=== PATIENT | female | born 1990 | race Caucasian/White ===

== ENCOUNTER 2017-04-21 10:31 | Emergency (ER) | payer SELFPAY ==
[2017-04-21 11:03] VITALS: BP 107/69
== END 2017-04-21 13:32 | disposition left against medical advice (07) ==
LOC: ED 10:31
DX: R05 Cough (principal); Z53.21 Procedure and treatment not carried out due to patient leaving prior to being seen by health care provider
CPT/HCPCS: 99282

== ENCOUNTER 2017-04-22 10:58 | Emergency (ER) | payer SELFPAY ==
[2017-04-22] MEDS ORDERED: Albuterol/Ipratropium NEB.SOL* Albuterol 2.5 MG/Ipratropium 0.5 MG 3 ML INH ONE (11:20)
[2017-04-22] MEDS ORDERED: predniSONE TAB* 20 MG PO ONE (11:20)
--- NOTE | 2017-04-22 11:31 | ED ---
Shortness of Breath - HPI Summary HPI Summary: 27F w/ PMH of asthma presents with sinus congestion, sore throat, and cough for 3 days. She has been taking motrin for pain. She has been using her inhaler more frequently. She says she has been having fevers. She admits to a decrease in appetite. She denies any abdominal pain, n/v/d. She admits to SOB and chest pain when coughs. She denies any ear pain. She denies any sick contacts. - History of Current Complaint Chief Complaint: EDGeneral Time Seen by Provider: 04/22/17 11:09 - Allergy/Home Medications Allergies/Adverse Reactions: Allergies Allergy/AdvReac Type Severity Reaction Status Date / Time No Known Allergies Allergy Verified 09/14/16 21:42 PMH/Surg Hx/FS Hx/Imm Hx Endocrine/Hematology History: Denies: Hx Anticoagulant Therapy Respiratory History: Reports: Hx Asthma Infectious Disease History: No Infectious Disease History: Denies: Traveled Outside the [place] in Last 30 Days - Family History Known Family History: Positive: Diabetes, Respiratory Disease - Social History Alcohol Use: None Substance Use Type: Reports: None Smoking Status (MU): Light Every Day Tobacco Smoker Review of Systems Negative: Fever Positive: Chest Pain Positive: Shortness Of Breath All Other Systems Reviewed And Are Negative: Yes Physical Exam Triage Information Reviewed: Yes Vital Signs On Initial Exam: Initial Vitals Temp Pulse Resp BP Pulse Ox 97.8 F 97 17 109/71 100 04/22/17 11:01 04/22/17 11:01 04/22/17 11:01 04/22/17 11:01 04/22/17 11:01 Vital Signs Reviewed: Yes Appearance: Positive: Well-Appearing Skin: Positive: Warm, Dry Head/Face: Positive: Normal Head/Face Inspection Eyes: Positive: Normal, EOMI, LELE, Conjunctiva Clear ENT: Positive: Pharynx normal, Nasal congestion, Nasal drainage, TMs normal Respiratory/Lung Sounds: Positive: Breath Sounds Present, Wheezes, Other - upper resp sounds heard Cardiovascular: Positive: Normal, RRR Abdomen Description: Positive: Nontender, Soft Bowel Sounds: Positive: Present Diagnostics - Vital Signs Vital Signs Temp Pulse Resp BP Pulse Ox 04/22/17 11:18 89 99 04/22/17 11:17 100/70 04/22/17 11:11 98.5 F 92 22 100/70 96 04/22/17 11:01 97.8 F 97 17 109/71 100 - Laboratory Lab Statement: Any lab studies that have been ordered have been reviewed, and results considered in the medical decision making process. - Radiology chest Xray Interpretation: No Acute Changes Radiology Interpretation Completed By: Radiologist Course/Dx - Course Course Of Treatment: 27F w/ PMH of asthma presents with sinus congestion, sore throat, and cough for 3 days.She has been using her inhaler more frequently. She says she has been having fevers. She admits to SOB and chest pain when coughs. on exam lungs sound wheeze and upper resp sounds, gave duoneb and prednisone and pt feels and sounds better. chest xray normal. will treat supporatively. patient understands and agrees with plan - Diagnoses Differential Diagnosis/HQI/PQRI: Positive: Asthma, Bronchitis, Pneumonia Provider Diagnoses: Upper respiratory infection, Asthma exacerbation Discharge - Discharge Plan Condition: Good Disposition: HOME Prescriptions: Fluticasone NASAL * [Flonase *] 2 spray BOTH NARES DAILY #1 bottle guaiFENesin/CODIEN 100MG-10MG* [Robitussin AC 100Mg-10Mg*] 5 ml PO Q6H PRN #100 ml MDD 20ml PRN Reason: Cough predniSONE TAB* [Deltasone TAB*] 40 mg PO DAILY #8 tab Patient Education Materials: Upper Respiratory Infection (ED) Referrals: [facility] [Outside] Additional Instructions: Take cough medication 5ml (1 teaspoon) every 6 hours as needed cough Use intranasal steroid one spray each nostril twice a day Use inhaler up to two puffs every 4-6 hours for cough Take steroid once a day starting tomorrow Use saline in the nose for nasal congestion, can also get Sudafed at pharmacy counter for nasal congestion Use humidifier or place warm bowls of water around the room for cough Take Tylenol or ibuprofen for pain every 6 hours Return to ED if develop any new or worsening symptoms
[2017-04-22 11:51] LABS: UR Preg Internal Control QC Line Present
--- NOTE | 2017-04-22 13:31 | RAD ---
INDICATION: Cough and fever. COMPARISON: There are no prior studies available for comparison. TECHNIQUE: Dual-energy PA and lateral views of the chest were obtained. FINDINGS: The heart is within normal limits in size. Mediastinal and hilar contours appear within normal limits. The lungs are clear. No pleural effusion is present. IMPRESSION: NO EVIDENCE FOR ACTIVE CARDIOPULMONARY DISEASE.
[2017-04-22 13:43] VITALS: BP 109/73
== END 2017-04-22 13:44 | disposition home or self-care (01) ==
LOC: ED 10:58
DX: J06.9 Acute upper respiratory infection, unspecified (principal); J45.901 Unspecified asthma with (acute) exacerbation; J02.9 Acute pharyngitis, unspecified; R05 Cough; F17.210 Nicotine dependence, cigarettes, uncomplicated; R07.9 Chest pain, unspecified; R06.02 Shortness of breath
CPT/HCPCS: 71020; 81025; 94640; 99282; A9270-GY; J7512

== ENCOUNTER 2017-05-12 16:27 | Emergency (ER) | payer SELFPAY ==
[2017-05-12 17:28] LABS: Hematocrit 37 % (35-47); Hemoglobin 12.3 g/dl (12.0-16.0); Mean Corpuscular HGB Conc 33 g/dl (31-36); Mean Corpuscular Hemoglobin 31 pg (27-31); Mean Corpuscular Volume 93 fL (80-97); Mean Platelet Volume 10 um3 (7.4-10.4); Red Blood Count 3.98 10^6/ul (4.0-5.4); Red Cell Distribution Width 13 % (10.5-15); White Blood Count 13.9 10^3/ul (3.5-10.8)
[2017-05-12] MEDS ORDERED: Ondansetron INJ* 2 MG/ML VIAL IV ONE (17:31)
[2017-05-12] MEDS ORDERED: NS 0.9% 1000 ML* 1,000 ML IV ONE (17:31)
[2017-05-12] MEDS ORDERED: Ondansetron INJ* 2 MG/ML VIAL ONE (17:32)
[2017-05-12 17:43] LABS: ALT 9 U/L (7-52); AST 16 U/L (13-39); Albumin 4.6 g/dL (3.2-5.2); Alkaline Phosphatase 44 U/L (34-104); Anion Gap 7 mmol/L (2-11); BUN/Creatinine Ratio 15.2 (8-20); Blood Urea Nitrogen 10 mg/dL (6-24); CO2 Carbon Dioxide 26 mmol/L (22-32); Calcium 9.6 mg/dL (8.6-10.3); Chloride 102 mmol/L (101-111); EGFR African American 139.2 (>60); EGFR Non-African American 108.3 (>60); Globulin 2.7 g/dL (2-4); Glucose 104 mg/dL (70-100); Potassium 3.8 mmol/L (3.5-5.0); Sodium 135 mmol/L (133-145); Total Protein 7.3 g/dL (6.4-8.9)
[2017-05-12 18:05] LABS: Acetaminophen < 15 mcg/mL; Alcohol < 10 mg/dL (<10); Salicylate < 2.50 mg/dL (<30)
[2017-05-12 18:45] LABS: Benzodiazepine Urine Screen None Detected (None Detect)
[2017-05-12 18:47] LABS: Urine Bacteria Absent (Absent); Urine Bilirubin Negative (Negative); Urine Glucose Negative (Negative); Urine Nitrite Negative (Negative)
[2017-05-12] MEDS ORDERED: Nicotine Inhaler* 10 MG AMP INH ONE (20:44)
[2017-05-12] MEDS ORDERED: Mouth Piece, Nicotine* 1 EACH CARTRIDGE INH PRN (20:44)
[2017-05-12] MEDS ORDERED: Nicotine Inhaler* 10 MG AMP ONE (20:47)
[2017-05-12] MEDS ORDERED: Mouth Piece, Nicotine* 1 EACH CARTRIDGE ONE (20:47)
[2017-05-13 03:17] VITALS: BP 96/56
--- NOTE | 2017-05-13 09:10 | ED ---
Belem Lucero Alfonso, scribed for Chris Urena MD on 05/12/17 at 1747 . Substance Abuse/Use - HPI Summary HPI Summary: This patient is a 27 year old F BIBA to [facility] for an overdose at 1540 today. 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 She was found unresponsive. She reports recent miscarriage. Symptoms aggravated by recent of her sister and alleviated by medication. Pt reports vomiting, anxiety, and depression. Positive for SI and HI. - History Of Current Complaint Chief Complaint: EDOverdose Stated Complaint: OVERDOSE Time Seen by Provider: 05/12/17 16:47 Hx Obtained From: Patient Onset/Duration of Drug/ETOH Abuse: Minutes Ingestion History: Type/Name Of Drug - Heroin, Approximate Time Of Ingestion - 1540 Overdose Characteristics: Inhalation Severity Initially: Moderate Severity Currently: Moderate Character: Depressed, Anxious Aggravating Factor(s): Recent Stress - Sister Alleviating Factor(s): Nothing Associated Signs And Symptoms: Vomiting - Allergies/Home Medications Allergies/Adverse Reactions: Allergies Allergy/AdvReac Type Severity Reaction Status Date / Time No Known Allergies Allergy Verified 09/14/16 21:42 PMH/Surg Hx/FS Hx/Imm Hx Endocrine/Hematology History: Denies: Hx Anticoagulant Therapy Respiratory History: Reports: Hx Asthma Infectious Disease History: No Infectious Disease History: Denies: Traveled Outside the [place] in Last 30 Days - Family History Known Family History: Positive: Diabetes, Respiratory Disease - Social History Alcohol Use: None Substance Use Type: Reports: None Smoking Status (MU): Light Every Day Tobacco Smoker Review of Systems Positive: Vomiting Neurological: Other - Positive heroin OD Positive: Anxious, Depressed, Other - Negative SI and HI All Other Systems Reviewed And Are Negative: Yes Physical Exam - Summary Physical Exam Summary: VITAL SIGNS: Reviewed. GENERAL: Patient is a well-developed and nourished female who is lying comfortable in the stretcher. Patient is not in any acute respiratory distress. HEAD AND FACE: Normocephalic EYES: PERRLA, EOMI x 2. EARS: Hearing grossly intact. MOUTH: Oropharynx within normal limits. NECK: Supple, trachea is midline, no adenopathy, no JVD, no carotid bruit. CHEST: Symmetric, no tenderness at palpation LUNGS: Clear to auscultation bilaterally. No wheezing or crackles. CVS: Regular rate and rhythm, S1 and S2 present, no murmurs or gallops appreciated. ABDOMEN: Soft, non-tender. Bowel sounds are normal. No abdominal abnormal pulsations. EXTREMITIES: Full ROM in all major joints, no edema, no cyanosis or clubbing. NEURO: Alert and oriented x 3. No acute neurological deficits. Speech is normal and follows commands. SKIN: Dry and warm Triage Information Reviewed: Yes Vital Signs On Initial Exam: Initial Vitals Temp Pulse Resp BP Pulse Ox 97.2 F 88 16 111/71 98 05/12/17 16:44 05/12/17 16:44 05/12/17 16:44 05/12/17 16:44 05/12/17 16:44 Vital Signs Reviewed: Yes - [place] Coma Scale Coma Scale Total: 15 Diagnostics - Vital Signs Vital Signs Temp Pulse Resp BP Pulse Ox 05/12/17 16:44 97.2 F 88 16 111/71 98 - Laboratory Lab Results: Lab Results 05/12/17 Range/Units 17:20 WBC 13.9 H (3.5-10.8) 10^3/ul RBC 3.98 L (4.0-5.4) 10^6/ul Hgb 12.3 (12.0-16.0) g/dl Hct 37 (35-47) % MCV 93 (80-97) fL MCH 31 (27-31) pg MCHC 33 (31-36) g/dl RDW 13 (10.5-15) % Plt Count 201 (150-450) 10^3/ul MPV 10 (7.4-10.4) um3 Neut % (Auto) 85.7 H (38-83) % Lymph % (Auto) 8.5 L (25-47) % [place] % (Auto) 3.7 (1-9) % Eos % (Auto) 1.0 (0-6) % Baso % (Auto) 1.1 (0-2) % Absolute Neuts (auto) 11.9 H (1.5-7.7) 10^3/ul Absolute Lymphs (auto) 1.2 (1.0-4.8) 10^3/ul Absolute Monos (auto) 0.5 (0-0.8) 10^3/ul Absolute Eos (auto) 0.1 (0-0.6) 10^3/ul Absolute Basos (auto) 0.2 (0-0.2) 10^3/ul Absolute Nucleated RBC 0.01 10^3/ul Nucleated RBC % 0 Result Diagrams: 05/12/17 17:20 05/12/17 17:20 Lab Statement: Any lab studies that have been ordered have been reviewed, and results considered in the medical decision making process. - EKG 1848 Cardiac Rate: NL - BPM 64 EKG Rhythm: Sinus Rhythm EKG Interpretation: No ST elevation Course/Dx - Course Course Of Treatment: This patient is a 27 year old F BIBA to [facility] for an overdose at 1540 today. 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 She was found unresponsive. She reports recent miscarriage. Symptoms aggravated by recent of her sister and alleviated by medication. Pt reports vomiting , anxiety, and depression. Positive for SI and HI. In the ED course an IV access was obtained. Patient was placed in a quality assurance monitor. Patient was started with IV fluids and she was given Zofran for nausea and vomiting. Labs within normal limits except for WBCs of 13.9, Urine drug screen positive for Opiates and cocaine and cannabinoids. EKG shows a NSR at w/o ST elevations. Patient reports that she has suicidal ideation and depression. SHe reports that her sister was murdered 2 weeks ago and she is anxious and depressed. SHe is cleared for MHE. Sh will be signed out to Dr. Sanches for following the recommendations. - Diagnoses Differential Diagnosis/HQI/PQRI: Positive: Anxiety, Depression, Suicidal Risk Provider Diagnoses: Overdose, Suicidal ideation Discharge - Discharge Plan Condition: Stable Disposition: HOME Referrals: No Primary Care Phys,NOPCP [Primary Care Provider] - Additional Instructions: Per completion of a mental health evaluation, you are cleared for release and do not require inpatient psychiatric hospitalization at this time. Please go to nearest emergency room or call 911 if safety concerns arise or condition worsens. Contact [facility] after 8:30 05/13/17 for emergency intake [phone] located at [address] [place] [address] Important Phone Numbers: [facility] [phone] Suicide Prevention and Crisis Services [phone] National Suicide Prevention Lifeline 735-330-ANKC ([phone]) [facility] [phone] Alcoholics Anonymous [phone] [facility] [phone] [facility] [phone] The documentation as recorded by the Belem prado Alfonso accurately reflects the service I personally performed and the decisions made by , Chris Urena MD.
== END 2017-05-13 00:37 | disposition home or self-care (01) ==
LOC: ED 16:27
DX: T40.1X2A Poisoning by heroin, intentional self-harm, initial encounter (principal); R45.851 Suicidal ideations; F32.9 Major depressive disorder, single episode, unspecified; R11.10 Vomiting, unspecified; F17.210 Nicotine dependence, cigarettes, uncomplicated; Y92.89 Other specified places as the place of occurrence of the external cause
CPT/HCPCS: 36415; 80053; 80307; 80320; 80329; 81003; 81015; 83605; 84702; 85025; 87077; 87086; 93005; 96374; 96375; 99285; A9270-GY; G0480; J2405